=== PATIENT | male | born 1960 | race Caucasian/White ===

== ENCOUNTER 2017-08-20 10:11 | Day surgery (SDC) | payer BC ==
[~2017-08-20 10:11] MED LIST: Lactated Ringers 1,000 ML IV SCH
[2017-08-20] MEDS ORDERED: Propofol 200 MG/20 ML SDV ONE ×3 (11:42→12:30)
[2017-08-20] MEDS ORDERED: fentaNYL 100 MCG/2 ML SDV ONE (11:42)
[2017-08-20 12:56] VITALS: BP 129/83
--- NOTE | 2017-08-20 16:36 | OR ---
PREOPERATIVE DIAGNOSIS: History of polyps. POSTOPERATIVE DIAGNOSIS: Normal colonoscopic exam. PROCEDURE PROPOSED: Total flexible colonoscopy. PROCEDURE DONE: Total flexible colonoscopy. INDICATION: This is a 57-year-old gentleman who comes in for recommended colonoscopy due to history of polyps. His last examination was about 6 years ago. TECHNIQUE: The patient was brought to the endoscopy suite, placed in left lateral decubitus position. He was sedated per [employer] with propofol. The flexible video colonoscope was then passed transanally and under visualization advanced to the cecum. Examination revealed a normal ascending, transverse, descending, sigmoid and rectal colon. There were no evidence of any polyps, diverticulosis, colitis or any other abnormalities and the scope was then withdrawn. The patient tolerated the procedure well. FINAL IMPRESSION: 1. Normal colonoscopic exam. 2. History of previous polyps. PLAN: He should continue colonic surveillance every 5 years hereafter due to his history of polyps. SCM: 08/20/2017 12:43:19 MODL: 08/20/2017 16:20:01 /[id number]
== END 2017-08-20 13:30 | disposition home or self-care (01) ==
LOC: VM.SDS 10:11
PROVIDERS: ATTEND Surgery
DX: Z12.11 Encounter for screening for malignant neoplasm of colon (principal); Z86.010 Personal history of colon polyps; I10 Essential (primary) hypertension; E78.5 Hyperlipidemia, unspecified; Z79.82 Long term (current) use of aspirin; Z79.899 Other long term (current) drug therapy; Z98.890 Other specified postprocedural states
CPT/HCPCS: 45378; J2704; J3010; J7120

== ENCOUNTER 2023-01-03 08:04 | Day surgery (SDC) | payer BC, OTHER ==
[~2023-01-03 08:04] MED LIST changes: +Sodium Chloride 0.9% 10 ML Syringe FLUSH PRN
[2023-01-03] MEDS ORDERED: Propofol 200 MG/20 ML SDV ONE ×4 (09:01→10:52)
[2023-01-03] MEDS ORDERED: fentaNYL 100 MCG/2 ML SDV ONE (09:01)
[2023-01-03 11:46] VITALS: BP 124/68; PULSE 57
== END 2023-01-03 12:25 | disposition home or self-care (01) ==
LOC: VM.SDS 08:04
PROVIDERS: ATTEND Family Medicine
DX: Z12.11 Encounter for screening for malignant neoplasm of colon (principal); Q43.8 Other specified congenital malformations of intestine; I10 Essential (primary) hypertension; E78.5 Hyperlipidemia, unspecified; G47.00 Insomnia, unspecified; D51.3 Other dietary vitamin B12 deficiency anemia; Z86.010 Personal history of colon polyps; Z98.890 Other specified postprocedural states; Z79.899 Other long term (current) drug therapy; Z79.82 Long term (current) use of aspirin; Z87.891 Personal history of nicotine dependence
CPT/HCPCS: 00812; J2704; J3010; J7120